=== PATIENT | male | born 1995 | race Caucasian/White ===

== ENCOUNTER 2016-08-25 16:49 | Emergency (ER) | payer OTHER ==
[2016-08-25 17:25] VITALS: BP 153/71; PULSE 89; RESP 18; TEMP 98.7
--- NOTE | 2016-08-25 17:43 | ED ---
ENT HPI - General Chief complaint: Dental/Oral Stated complaint: Abscess Tooth Source: patient, RN notes reviewed, old records reviewed Mode of arrival: ambulatory Limitations: no limitations - History of Present Illness Initial comments: Patient is a 21 year old male with chief complaint of right upper molar pain and swelling and concerns for possible dentla abscess. Patient reports that he has had problems with his teeth, and is seeing a dentist in [place] next week. Patient states that he noticed the dental pain and swelling a few days ago, and the swelling has been progressvely worse. Patient denies fevers, chills, chest pain, difficulty swallowing, shortness of breath. Patient denies difficulty opening and closing mouth, and drainage around the ike. - Related Data Previous Rx's Medication Instructions Recorded Acetaminophen-Codeine 300-30mg 1 tab PO Q8H PRN #20 tablet 08/25/16 [Tylenol #3] Clindamycin [Cleocin] 450 mg PO TID 7 Days 08/25/16 Allergies Allergy/AdvReac Type Severity Reaction Status Date / Time Penicillins Allergy Anaphylaxis Verified 08/25/16 17:44 Review of Systems ROS Statement: Those systems with pertinent positive or pertinent negative responses have been documented in the HPI. ROS Other: All systems not noted in ROS Statement are negative. Past Medical History Past Medical History: Asthma History of Any Multi-Drug Resistant Organisms: None Reported Past Surgical History: No Surgical Hx Reported Additional Past Surgical History / Comment(s): testicular surgery, oral surgery Past Psychological History: Bipolar Smoking Status: Current every day smoker Past Alcohol Use History: Rare Past Drug Use History: None Reported General Exam - General Exam Comments Initial Comments: Pleasant 21 year old male. No distress. Limitations: no limitations General appearance: alert, in no apparent distress Head exam: Present: atraumatic, normocephalic, normal inspection Eye exam: Present: normal appearance, PERRL, EOMI. Absent: scleral icterus, conjunctival injection, periorbital swelling ENT exam: Present: normal exam, mucous membranes moist. Absent: normal oropharynx (broken upper left molar, evidence of erythema around gum, and swelling around gum ) Neck exam: Present: normal inspection. Absent: tenderness, meningismus, lymphadenopathy Respiratory exam: Present: normal lung sounds bilaterally. Absent: respiratory distress, wheezes, rales, rhonchi, stridor Cardiovascular Exam: Present: regular rate, normal rhythm, normal heart sounds. Absent: systolic murmur, diastolic murmur, rubs, gallop, clicks GI/Abdominal exam: Present: soft, normal bowel sounds. Absent: distended, tenderness, guarding, rebound, rigid Extremities exam: Present: normal inspection, full ROM, normal capillary refill. Absent: tenderness, pedal edema, joint swelling, calf tenderness Back exam: Present: normal inspection Neurological exam: Present: alert, oriented X3, CN II-XII intact Psychiatric exam: Present: normal affect, normal mood Skin exam: Present: warm, dry, intact, normal color. Absent: rash Course Vital Signs 08/25/16 17:22 Temperature 98.7 F Pulse Rate 89 Respiratory 18 Rate Blood Pressure 153/71 O2 Sat by Pulse 98 Oximetry Medical Decision Making - Medical Decision Making Patient is a 21 year old male with abscessed left upper molar, patient will be started on clindamycin and pain medication. Discussed close follow up with dentist. Patient understands treatment planand will comply. Return parameters discussed. Disposition Clinical Impression: Dental abscess Disposition: HOME SELF-CARE Condition: Good Instructions: Dental Abscess (ED) Additional Instructions: Patient advised to complete entire antibiotic prescription. Follow-up with dentist next week. Return to emergency Department if any alarming signs or symptoms occur. Prescriptions: Acetaminophen-Codeine 300-30mg [Tylenol #3] 1 tab PO Q8H PRN #20 tablet PRN Reason: Pain Clindamycin [Cleocin] 450 mg PO TID 7 Days Referrals: None,Stated [Primary Care Provider] - 1-2 days Time of Disposition: 17:41
== END 2016-08-25 17:48 | disposition home or self-care (01) ==
LOC: EC 16:49
DX: S02.5XXA Fracture of tooth (traumatic), initial encounter for closed fracture (principal); K04.7 Periapical abscess without sinus; F17.200 Nicotine dependence, unspecified, uncomplicated; Z88.0 Allergy status to penicillin; Z98.890 Other specified postprocedural states; X58.XXXA Exposure to other specified factors, initial encounter
CPT/HCPCS: 99283

== ENCOUNTER 2016-10-11 10:22 | Inpatient (IN) | payer MEDICAID, OTHER ==
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
[2016-10-11 11:29] LABS: Acetaminophen <10.0 ug/mL; Salicylate <1.0 mg/dL
[2016-10-11 15:04] VITALS: BMI 21.0
[2016-10-11] MEDS ORDERED: MAG HYDROX/AL HYDROX/SIMETH 30 ML CUP PO PRN (16:10)
[2016-10-11] MEDS ORDERED: ACETAMINOPHEN TAB 325 MG TAB PO PRN (16:10)
[2016-10-11] MEDS ORDERED: MAGNESIUM HYDROXIDE 2,400 MG/10 ML CUP PO PRN (16:10)
[2016-10-11] MEDS ORDERED: ZIPRASIDONE 20 MG VIAL IM PRN (16:10)
[2016-10-11] MEDS ORDERED: DIAZEPAM 5 MG TAB PO PRN (16:24)
[2016-10-11] MEDS: NICOTINE 21MG/24HR PATCH TRANSDERM SCH (17:20)
[2016-10-11] MEDS: DIAZEPAM 5 MG TAB PO SCH ×2 (17:56→21:11)
[2016-10-12 09:28] LABS: Basophils % (A) 0 %; CH 32.7; CHCM 33.4; Eosinophils # (A) 0.2 k/uL (0-0.7); Eosinophils % (A) 3 %; HCT 52.6 % (39.0-53.0); HDW 2.46; HGB 17.1 gm/dL (13.0-17.5); Luc # (Auto) 0.15; Luc % (Auto) 3; Lymphocytes # (A) 1.8 k/uL (1.0-4.8); Lymphocytes % (A) 32 %; MCHC 32.5 g/dL (31.0-37.0); MCV 98.4 fL (80.0-100.0); Mean Platelet Volume 6.9; Monocytes # (A) 0.3 k/uL (0-1.0); Monocytes % (A) 6 %; Neutrophils # (A) 3.2 k/uL (1.3-7.7); Neutrophils % (A) 57 %; RBC 5.34 m/uL (4.30-5.90); RDW 12.5 % (11.5-15.5); WBC 5.6 k/uL (3.8-10.6); WBC (Perox) 5.59
[2016-10-12] MEDS: NICOTINE 21MG/24HR PATCH TRANSDERM SCH (09:35)
[2016-10-12] MEDS: DIAZEPAM 5 MG TAB PO SCH ×4 (09:35→20:54)
[2016-10-12 09:54] LABS: Anion Gap 10 mmol/L; Bilirubin, Delta 0.6 mg/dL (0.0-0.2); Calcium 9.7 mg/dL (8.4-10.2); Carbon Dioxide 24 mmol/L (22-30); Chloride 107 mmol/L (98-107); Glucose 119 mg/dL (74-99); Non-African American GFR(MDRD) >60 (>60 ml/min/1.73 sqM); Sodium 141 mmol/L (137-145); Total Bilirubin 1.6 mg/dL (0.2-1.3); Total Protein 7.5 g/dL (6.3-8.2)
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
[2016-10-12 10:27] LABS: ALT 29 U/L (21-72); AST 32 U/L (17-59); Alkaline Phosphatase 77 U/L (38-126); Blood Urea Nitrogen 18 mg/dL (9-20); Potassium 4.7 mmol/L (3.5-5.1)
[2016-10-12] MEDS: ARIPiprazole 5 MG TAB PO SCH (10:42)
[2016-10-12] MEDS ORDERED: cloNIDine HCL 0.1 MG TAB PO PRN (12:18)
--- NOTE | 2016-10-12 14:20 | P.CONS ---
History of Present Illness - Reason for Consult Consult date: 10/12/16 Medical management Requesting physician: Skyler Lua - Chief Complaint Severe depression, suicidal ideation, GERD, smoking, hyperglycemia, elevate - History of Present Illness 21-year-old male who does not have primary care physician was chronic history of depression and elevated blood pressure apparently has been having a lot of problems lately including financial, relation and living situation. Patient apparently smoke and drink also smoke marijuana regularly and uses crack once in a while. Patient developed severe depression and suicidal ideation walk to the emergency department and ask for help she cannot hurt himself. He lost his job recently and has been struggling be time. Patient was admitted to the psych unit for the above problem. Review of Systems Constitutional: Reports fatigue, Reports malaise, Denies as per HPI, Denies anorexia, Denies chills, Denies chronic headaches, Denies chronic pain, Denies daytime sleepiness, Denies fever, Denies lethargy, Denies night sweats, Denies poor appetite, Denies sweats, Denies weakness, Denies weight gain, Denies weight loss Eyes: bilateral as per HPI Ears, nose, mouth and throat: Reports nasal congestion, Denies as per HPI, Denies ant. neck pain, Denies bleeding gums, Denies dental pain, Denies dysphagia, Denies epistaxis, Denies headache, Denies hoarseness, Denies mouth pain, Denies nasal discharge, Denies neck fullness/pressure, Denies neck lump, Denies nose pain, Denies odynophagia, Denies post-nasal drip, Denies sinus pain , Denies sinus pressure, Denies swelling in mouth, Denies swelling in throat, Denies sore throat, Denies vertigo, Denies voice changes Cardiovascular: Denies as per HPI, Denies chest pain, Denies claudication, Denies decreased exercise tolerance, Denies dyspnea on exertion, Denies edema, Denies high blood pressure, Denies irregular heart beat, Denies leg edema, Denies lightheadedness, Denies orthopnea, Denies palpitations, Denies paroxysmal nocturnal dyspnea, Denies phlebitis, Denies rapid heart beat, Denies shortness of breath, Denies syncope Respiratory: Reports congestion, Denies as per HPI, Denies cough, Denies cough with sputum, Denies dyspnea, Denies excessive sputum, Denies hemoptysis, Denies home oxygen, Denies pain, Denies pain on inspiration, Denies pleurisy, Denies respiratory infections, Denies sleep apnea, Denies snoring, Denies wheezing Gastrointestinal: Reports abdominal pain, Reports dyspepsia, Reports indigestion , Reports nausea, Denies as per HPI, Denies belching, Denies bloating, Denies BRBPR, Denies change in bowel habits, Denies coffee ground emesis, Denies constipation, Denies diarrhea, Denies early satiety, Denies excessive gas, Denies heartburn, Denies hematemesis, Denies hematochezia, Denies jaundice, Denies lactose intolerance, Denies loss of appetite, Denies melena, Denies vomiting Genitourinary: Denies as per HPI, Denies decreased libido, Denies difficulties fathering child, Denies discharge, Denies dysuria, Denies erectile dysfunction, Denies flank pain, Denies genital pain, Denies genital sores, Denies hematuria, Denies impotence, Denies incontinence, Denies kidney stones, Denies nocturia, Denies polyuria, Denies testicular lump, Denies testicular pain, Denies urinary frequency, Denies urinary hesitancy, Denies urinary retention Musculoskeletal: Denies as per HPI, Denies arm numbness/tingling, Denies atrophy , Denies fractures, Denies frequent falls, Denies gait dysfunction, Denies hot joints, Denies leg numbness/tingling, Denies limitation of motion, Denies loss of height, Denies low back pain, Denies morning stiffness, Denies muscle cramps , Denies muscle weakness, Denies myalgias, Denies neck pain, Denies neck stiffness, Denies prior amputations, Denies redness of joints, Denies shooting arm pain, Denies shooting leg pain Integumentary: Reports pruritus, Reports rash, Denies as per HPI, Denies acne, Denies boils, Denies brittle nails, Denies change in hair/nails, Denies color changes, Denies darkening of skin, Denies depigmentation, Denies dryness, Denies foot/leg ulcers, Denies growths, Denies hirsutism, Denies lesions, Denies onychomycosis, Denies sores, Denies striae, Denies unusual bruising, Denies wounds Neurological: Denies as per HPI, Denies aphasia, Denies ataxia, Denies balance difficulties, Denies burning pain, Denies change in mentation, Denies change in smell/taste, Denies change in speech, Denies confusion, Denies convulsions, Denies double vision, Denies gait dysfunction, Denies head injury, Denies headaches, Denies hearing difficulties, Denies lack of coordination, Denies loss of vision, Denies memory loss, Denies migraines, Denies motor disturbance, Denies numbness, Denies paralysis, Denies paresthesias, Denies seizures, Denies sensory deficit, Denies spasticity, Denies syncope, Denies tic, Denies tingling , Denies transient paralysis, Denies tremors, Denies vertigo, Denies weakness, Denies visual changes Psychiatric: Reports anhedonia, Reports anxiety, Reports depression, Reports mood swings, Reports paranoia, Reports sadness/tearfulness, Reports suicidal ideation, Denies as per HPI, Denies anxiety attacks, Denies change in appetite, Denies change in libido, Denies change in sleep habits, Denies confusion, Denies difficulty concentrating, Denies disorientation, Denies hallucinations, Denies hopelessness, Denies hypersomnia, Denies insomnia, Denies irritability, Denies memory loss, Denies sleep disturbances Endocrine: Reports excessive sweating, Reports excessive thirst, Denies as per HPI, Denies cold intolerance, Denies deepening of the voice, Denies fatigue, Denies flushing, Denies heat intolerance, Denies high blood sugars, Denies increase in ring/shoe/hat size, Denies low blood sugars, Denies nocturia, Denies palpitations, Denies polydipsia, Denies polyphagia, Denies polyuria, Denies proptosis, Denies recent glucocorticoid use, Denies thyroid mass, Denies weight change Hematologic/Lymphatic: Reports easy bruising, Denies as per HPI, Denies easy bleeding, Denies lymphadenopathy, Denies lymphedema, Denies thrombophilia Allergic/Immunologic: Reports allergic rhinitis, Denies as per HPI, Denies anaphylaxis, Denies angioedema, Denies gluten intolerance, Denies persistent infections, Denies seasonal allergies, Denies urticaria, Denies wheezing Past Medical History Past Medical History: Asthma History of Any Multi-Drug Resistant Organisms: None Reported Past Surgical History: No Surgical Hx Reported Additional Past Surgical History / Comment(s): testicular surgery, oral surgery Past Psychological History: Bipolar Smoking Status: Current every day smoker Past Alcohol Use History: Daily Past Drug Use History: Cocaine, Heroin, Marijuana Medications and Allergies Home Medications Medication Instructions Recorded Confirmed Type Ibuprofen [Motrin] 800 mg PO TID PRN 10/11/16 10/11/16 History Allergies Allergy/AdvReac Type Severity Reaction Status Date / Time Penicillins Allergy Anaphylaxis Verified 10/11/16 15:31 Physical Exam Vitals: Vital Signs Temp Pulse Pulse Resp BP BP Pulse Ox 10/12/16 13:03 90 16 141/83 10/12/16 09:35 84 16 167/87 10/12/16 06:18 97.7 F 68 18 143/78 10/11/16 21:15 72 16 136/71 10/11/16 17:50 75 16 145/74 10/11/16 15:27 98.0 F 93 16 138/69 10/11/16 14:53 98.0 F 93 16 138/69 10/11/16 14:28 98.4 F 74 16 146/69 98 - Constitutional General appearance: no average body habitus, cooperative, no disheveled, no mild distress, no morbidly obese, no acute distress, no obese, no severe distress, no thin - EENT Eyes: no abnormal pupil, no anicteric sclerae, no disc margins sharp, no edentulous, no EOMI, no PERRLA, no fundus normal, no photophobia, no dentition normal, no poor dentition, no ptosis, no scleral icterus, normal appearance ENT: no hard of hearing, no hearing grossly normal, no NA/AT, no normal oropharynx, no other, pharyngeal erythema, no thrush, no tonsillar exudates, no tonsillar swelling Ears: bilateral: normal - Neck Neck: no lymphadenopathy, normal ROM, no other, no rigidity, no stridor, no thyromegaly Carotids: bilateral: upstroke normal Thyroid: bilateral: normal size - Respiratory Respiratory: bilateral: CTA - Cardiovascular Rhythm: regular Heart sounds: normal: S1, S2 - Gastrointestinal General gastrointestinal: no absent bowel sounds, no decreased bowel sounds, no distended, no hepatomegaly, no hyperactive bowel sounds, normal bowel sounds, no organomegaly, no rigid, no scaphoid, soft, no splenomegaly, no tenderness, no umbilical hernia, no ventral hernia - Integumentary Integumentary: no calor, no cellulitis, no cyanotic, no decreased turgor, no flushed, no jaundiced, normal, no normal turgor, no pale, rash, no ulcer - Neurologic Neurologic: CNII-XII intact - Musculoskeletal Musculoskeletal: gait normal, generalized weakness, strength equal bilaterally, no right sided weakness, no left sided weakness - Psychiatric Psychiatric: A&O x's 3, appropriate affect Results CBC & Chem 7: 10/12/16 08:50 10/12/16 08:50 Labs: Abnormal Lab Results - Last 24 Hours (Table) 10/12/16 Range/Units 08:50 Glucose 119 H (74-99) mg/dL Total Bilirubin 1.6 H (0.2-1.3) mg/dL Delta Bilirubin 0.6 H (0.0-0.2) mg/dL Assessment and Plan Plan: 1 severe depression and suicidal ideation: Patient was started on Valium Geodon and Abijannethy will be seen psychiatry on regular basis. 2 hypertension: Blood pressure remain slightly but elevated start patient on clonidine 0.1 mg every 8 hours for systolic above 160. 3 smoking: Patient be on nicotine patch 14-21 mg daily. 4 alcoholism: He is not intoxicated currently but we should worry about withdrawal from alcohol and DVT: Patient was started on Valium will be seen psych regularly. 5 mildly elevated bilirubin: Most likely from [place] consumption. 6 hyperglycemia: On diet control only. CODE STATUS: Full code. Dr. Lua thank you very much for the consult if I can be any further help to please let me know thank you.
[2016-10-13] MEDS: DIAZEPAM 5 MG TAB PO SCH ×4 (09:33→22:13)
[2016-10-13] MEDS: FAMOTIDINE 20 MG TAB PO SCH (09:33)
[2016-10-13] MEDS: ARIPiprazole 5 MG TAB PO SCH (09:33)
[2016-10-13] MEDS: NICOTINE 21MG/24HR PATCH TRANSDERM SCH (09:33)
--- NOTE | 2016-10-13 12:51 | P.PN ---
Progress Note - Text INTERVERAL HISTORY: Patient seen, records reviewed, discussed case with nursing staff. Patient admitted for suicidal ideation, long history of depression since childhood. Had plans of overdosing or cutting/stabbing himself. Patient states his 5-month-old son was the reason he came in seeking care. Patient states that he knows he's had problems for a long time anger has been long-standing constant for him. Depression fluctuating alternating with anger. Reports while in group today he was starting to become angry with some of the other patients who he felt were not taking the group topic seriously. He says he just became quiet and would not interact. Patient says his mother tries but is unable to be supportive, says that his sister is the biggest support he has and he plans to live with her on discharge. Patient has been using heroin alcohol and cannabis, states he wants to stop everything, and is hoping he can get into [place]. Denies suicidal ideation but states he thinks if he doesn't get treatment and will happen. He focuses on his 5-month-old child and desire to be there as a father. MENTAL STATUS EXAM:Patient alert and oriented 3, good eye contact, fair groomed in hospital attire/street clothing. Speech normal volume, rate and production. Coherent, logical and goal directed thought process. No EARL, no FOI. [No TB/TW/ TI] Denied auditory and visual hallucinations. Denied paranoid ideation, delusions or IOR. Memory grossly intact Cognition average Mood dysphoric, affect constricted, congruent with mood. Denies suicidal ideation, denies homicidal ideation. Insight partial; Judgement grossly intact for treatment purposes Diagnostic impression: This is a 21-year-old male reported history of depression since childhood. Continues with dysphoria, but also with anger suggesting mood disorder, unspecified rule out bipolar 2. Although denying suicidal ideation and reporting his 5-month-old child as being present in his mind all the time, risk of suicide is high. Unspecified mood disorder Rule out bipolar 2 Rule out Opioid use disorder Rule out Cocaine use disorder Cannabis use disorder, moderate Rule out alcohol use disorder PLAN: Continue inpatient psychiatric hospitalization for safety and management of mood disorder, and avoidance of alcohol withdrawal,CIWA. Suicide precautions. Will increase Abilify to 7.5 mg daily (2.5 mg dose now) Deferred starting antidepressant until clarification of disorder, antidepressant use is not helpful in bipolar disorder. Social work to help with rehabilitation plans. Social work to arrange family meeting with sister. Milieu therapy as tolerated, if getting angry patient and be encouraged to leave the group
[2016-10-13] MEDS ORDERED: ARIPiprazole 5 MG TAB PO ONE (13:00)
[2016-10-14 06:24] VITALS: TEMP 97.5
[2016-10-14] MEDS: FAMOTIDINE 20 MG TAB PO SCH (08:51)
[2016-10-14] MEDS: NICOTINE 21MG/24HR PATCH TRANSDERM SCH (08:51)
[2016-10-14] MEDS: DIAZEPAM 5 MG TAB PO SCH ×2 (08:51→21:42)
[2016-10-14] MEDS ORDERED: ARIPiprazole 5 MG TAB PO SCH (09:00)
--- NOTE | 2016-10-14 09:30 | P.PN ---
Progress Note - Text Interval history: The patient is found in group he follows me to an interview room. The patient was admitted over the weekend the psychiatric evaluation and progress note were reviewed. He reports presenting with suicidal ideation and feeling overwhelmed. He feels he is now in a safe place. He is hoping to get into [facility] for chemical dependency treatment. He does endorse hypomanic episodes as be described those symptoms. He struggles with mood swings irritability impulse control. He was started on Abilify and this was titrated further yesterday. We discussed the purpose of Abilify and he has no questions or concerns regarding that medication. He states he slept well last night he reports attending all groups. Mental status exam: The patient is a male appearing his stated age he seated calmly. He is casually dressed in sweatpants a longsleeved T-shirt with a T-shirt over top. He wears eyeglasses. Eye contact is appropriate speech is fluent spontaneous nonpressured. He has a constricted affect with limited range. He demonstrates no verbal or physical aggressiveness. His fingernails are all quite short from being chewed he states due to anxiety. He feels safe here in the hospital and is endorsing no acute suicidal ideation today he is endorsing no homicidal ideation. He endorses no auditory or visual hallucinations or specific delusions there is no evidence of psychosis. Insight and judgment appear to be improving. He demonstrates future oriented thinking. He is oriented to person place and date. Plan: The patient will continue on the Abilify as a mood stabilizer we will increase the dose to 10 mg daily. He is reporting no side effects from this medication. Vital signs reviewed. He was placed on Valium 5 mg 4 times daily scheduled we will reduce this to twice daily scheduled with backup Ativan as needed. He will continue participating in groups. I will confer with social work regarding his placement at [facility] and arranging a support meeting.
[2016-10-15 06:18] VITALS: BP 125/66; PULSE 54; RESP 16
[2016-10-15] MEDS: FAMOTIDINE 20 MG TAB PO SCH (08:18)
[2016-10-15] MEDS: NICOTINE 21MG/24HR PATCH TRANSDERM SCH (08:18)
[2016-10-15] MEDS: DIAZEPAM 5 MG TAB PO SCH (08:18)
[2016-10-15] MEDS ORDERED: ARIPiprazole 10 MG TAB PO SCH (09:00)
--- NOTE | 2016-10-15 09:46 | P.DS ---
Providers Date of admission: 10/11/16 14:17 Expected date of discharge: 10/15/16 Attending physician: Skyler Lua Consults: 10/11/16 16:10 Consult Physician Routine Consulting Provider: Tushar Mckenna Reason/Comments: H & P and medical follow up Do you want consulting provider notified?: Yes Primary care physician: Stated None - Discharge Diagnosis(es) (1) Bipolar II disorder Current Visit: Yes Status: Acute (2) Opiate dependence Current Visit: Yes Status: Acute (3) Alcohol use disorder Current Visit: Yes Status: Acute Hospital Course: Brief summary of admission note: This patient is a 21-year-old male who was admitted to the mental health unit for symptoms of depression including suicidal ideation. The patient reported a history of mood symptoms including mood swings irritability and bouts of agitation and aggression. For full details please refer to the psychiatric evaluation. Summary of hospital course: The patient was admitted to the mental health unit voluntarily. He was initially seen by the [facility] physician covering for the weekend. He was started on Abilify for mood stabilization. I assumed care of this patient starting yesterday. We clarified that he has had hypomanic episodes and discussed that Abilify can be used for mood stabilization with a bipolar 2 disorder. We decided to titrate the dose to 10 mg daily allowing it to be more effective for that purpose. The patient does have a history of opiate use disorder and alcohol use disorder. He has made contact with [facility] and will be starting treatment with them on October 27. He did undergo a family meeting involving his sister and that was productive. He will be returning to his sister's home and he will have a constant support from family there. He feels that he is able to maintain sobriety until starting rehab on the . He will be set up for individual counseling. His questions regarding Abilify were answered we discussed potential benefits and side effects of the medication. He is reporting a significant improvement of his mood and he feels more optimistic and he demonstrates future oriented thinking. The patient demonstrated no agitated behavior. He has been productively participating in the milieu. Mental status exam: The patient is a thin male appearing his stated age. He wears eyeglasses he has a missing front tooth. He does have visible tattoos he is dressed in his own clothing hygiene grooming are adequate. He reports his mood is "much better" affect is congruent and appropriately reactive. He reports no suicidal or homicidal ideation intent or plan. He demonstrates future oriented thinking and optimism. He demonstrates no symptoms of psychosis, he reports no auditory or visual hallucinations he reports no specific delusions. Thought process is linear and goal-directed he demonstrates no symptoms of hypomania or tony. Insight and judgment are grossly intact. Cognitive abilities remain stable across a hospitalization he is oriented to person place and date. He demonstrates no verbal or physical aggressiveness no other psychomotor agitation. Impressions 1. Bipolar 2 disorder most recent depressed, opiate use disorder, alcohol use disorder, cannabis use disorder 2. Financial constraints Plan: The patient will be discharged the mental health unit today he will return to his family's home temporarily to reside prior to rehab. He will continue on Abilify 10 mg daily. Social work has arrange the outpatient mental health follow-up. The patient will continue to address substance use issues during outpatient mental health follow-up as well. He is reporting no immediate access to firearms at his sister's home. He is verbalizing an understanding that he needs to abstain from alcohol and marijuana and any illicit drug use. We discussed that his safety risk is elevated with use of substances. He is no longer at imminent safety risk he is appropriate for discharge to outpatient care. Patient Condition at Discharge: Stable Plan - Discharge Summary New Discharge Prescriptions: New ARIPiprazole [Abilify] 10 mg PO DAILY #30 tab Nicotine 21Mg/24Hr Patch [Habitrol] 1 patch TRANSDERM DAILY #12 patch Discontinued Ibuprofen [Motrin] 800 mg PO TID PRN PRN Reason: Pain Discharge Medication List ARIPiprazole [Abilify] 10 mg PO DAILY #30 tab 10/15/16 [Rx] Nicotine 21Mg/24Hr Patch [Habitrol] 1 patch TRANSDERM DAILY #12 patch 10/15/16 [ Rx] Follow up Appointment(s)/Referral(s): intake,intake [Other] - 10/27/16 11:00 am None,Stated [Primary Care Provider] - 1-2 days
== END 2016-10-15 12:45 | disposition home or self-care (01) | DRG 885 ==
LOC: EC 10:22 → 3MHU 14:17
PROVIDERS: ADMIT Psychiatry & Neurology Psychiatry; ATTEND Psychiatry & Neurology Psychiatry
DX: F31.81 Bipolar II disorder (principal); F11.20 Opioid dependence, uncomplicated; R45.851 Suicidal ideations; F17.200 Nicotine dependence, unspecified, uncomplicated; F41.9 Anxiety disorder, unspecified; J45.909 Unspecified asthma, uncomplicated; K21.9 Gastro-esophageal reflux disease without esophagitis; Z59.0 Homelessness; Z91.410 Personal history of adult physical and sexual abuse; Z91.411 Personal history of adult psychological abuse; F11.10 Opioid abuse, uncomplicated; F10.10 Alcohol abuse, uncomplicated
CPT/HCPCS: 36415; 80053; 80306; 82075; 82248; 83520; 84443; 85025; 99285

== ENCOUNTER 2017-05-05 06:51 | Emergency (ER) | payer OTHER ==
[2017-05-05 06:58] VITALS: RESP 18
[2017-05-05] MEDS ORDERED: KETOROLAC 30 MG/ML 1 ML VIAL IVP STA (07:29)
[2017-05-05] MEDS ORDERED: KETOROLAC 30 MG/ML 1 ML VIAL IM STA (07:30)
--- NOTE | 2017-05-05 07:33 | ED ---
General Adult HPI - General Chief complaint: Dental/Oral Stated complaint: dental pain Time Seen by Provider: 05/05/17 07:00 Source: patient, RN notes reviewed Mode of arrival: ambulatory Limitations: no limitations - History of Present Illness Initial comments: 21-year-old male presenting for evaluation of left lower tooth pain. Pain is been present for one day. Denies any dental trauma. Patient does have poor dentition. Previous history of IV drug abuse. Not currently using drugs. Patient has not had dental follow-up in the recent history. Denies fever or chills. Denies shortness of breath difficult to breathing, denies difficulty swallowing. Patient does have associated left ear pain. - Related Data Previous Rx's Medication Instructions Recorded Clindamycin [Cleocin] 150 mg PO Q6H #40 capsule 05/05/17 Ibuprofen [Motrin] 600 mg PO Q8HR PRN #24 tab 05/05/17 Allergies Allergy/AdvReac Type Severity Reaction Status Date / Time Penicillins Allergy Anaphylaxis Verified 05/05/17 07:27 Review of Systems ROS Statement: Those systems with pertinent positive or pertinent negative responses have been documented in the HPI. ROS Other: All systems not noted in ROS Statement are negative. Past Medical History Past Medical History: Asthma History of Any Multi-Drug Resistant Organisms: None Reported Past Surgical History: No Surgical Hx Reported Additional Past Surgical History / Comment(s): testicular surgery, oral surgery Past Psychological History: Bipolar Smoking Status: Current every day smoker Past Alcohol Use History: Occasional Past Drug Use History: Cocaine, Heroin, Marijuana General Exam Limitations: no limitations General appearance: alert, in no apparent distress Head exam: Present: atraumatic, normocephalic Eye exam: Present: normal appearance, PERRL ENT exam: Present: TM's normal bilaterally, other (Left lower molars, with dental caries, tenderness to percussion, no gingival abscess appreciated. No soft tissue swelling.) Neck exam: Present: normal inspection. Absent: tenderness, meningismus Respiratory exam: Present: normal lung sounds bilaterally. Absent: respiratory distress Cardiovascular Exam: Present: regular rate, normal rhythm GI/Abdominal exam: Present: soft. Absent: distended, tenderness Extremities exam: Present: normal inspection, normal capillary refill. Absent: pedal edema Neurological exam: Present: alert, oriented X3, CN II-XII intact. Absent: motor sensory deficit Psychiatric exam: Present: normal affect, normal mood Skin exam: Present: warm, dry, intact Course Vital Signs 05/05/17 06:55 Temperature 97.0 F L Pulse Rate 65 Respiratory 18 Rate Blood Pressure 177/110 O2 Sat by Pulse 99 Oximetry Medical Decision Making - Medical Decision Making 21-year-old male presenting with left lower molar pain. Significant dental caries, tenderness to percussion. No surrounding soft tissue cellulitis or infection. Patient is given tramadol emergency department. He is given dental referral and prescription for clindamycin as he has a penicillin ALLERGY. He will return with worsening symptoms. Disposition Clinical Impression: Dental abscess, Dental caries, Toothache Disposition: HOME SELF-CARE Condition: Good Instructions: Dental Abscess (ED), Dental Caries (ED), Toothache (ED) Additional Instructions: Patient given outpatient dental referral. Prescriptions: Clindamycin [Cleocin] 150 mg PO Q6H #40 capsule Ibuprofen [Motrin] 600 mg PO Q8HR PRN #24 tab PRN Reason: Pain Referrals: Nonstaff,Physician [Primary Care Provider] - 1-2 days Time of Disposition: 07:33
[2017-05-05 08:28] VITALS: BP 126/78; PULSE 70; TEMP 98
== END 2017-05-05 08:28 | disposition home or self-care (01) ==
LOC: EC 06:51
DX: K02.9 Dental caries, unspecified (principal); K04.7 Periapical abscess without sinus; H92.02 Otalgia, left ear; F17.200 Nicotine dependence, unspecified, uncomplicated; Z88.0 Allergy status to penicillin
CPT/HCPCS: 99282; 96372; J1885

== ENCOUNTER 2018-11-29 13:53 | Emergency (ER) | payer OTHER ==
[2018-11-29 13:58] VITALS: BP 173/97; PULSE 70; RESP 18; TEMP 97.8
--- NOTE | 2018-11-29 14:19 | ED ---
ENT HPI - General Chief complaint: Dental/Oral Stated complaint: Oral Pain Time Seen by Provider: 11/29/18 13:58 Source: patient, RN notes reviewed Mode of arrival: ambulatory Limitations: no limitations - History of Present Illness Initial comments: 23-year-old male presents emergency Department chief complaint of left lower dental pain. Patient states she has [facility] states isn't increased pain last 24 hours no fevers or chills. Patient states that he just moved back from [place] he denies been any medications other night. At this time. Patient is requesting dental block. Patient denies any trismus no headache no dizziness no neck pain or neck stiffness. - Related Data Previous Rx's Medication Instructions Recorded Clindamycin [Cleocin] 150 mg PO Q6H #40 capsule 05/05/17 Ibuprofen [Motrin] 600 mg PO Q8HR PRN #24 tab 05/05/17 Cephalexin [Keflex] 500 mg PO Q6HR #40 cap 11/29/18 Allergies Allergy/AdvReac Type Severity Reaction Status Date / Time Penicillins Allergy Anaphylaxis Verified 11/29/18 13:56 Review of Systems ROS Statement: Those systems with pertinent positive or pertinent negative responses have been documented in the HPI. ROS Other: All systems not noted in ROS Statement are negative. Past Medical History Past Medical History: Asthma History of Any Multi-Drug Resistant Organisms: None Reported Past Surgical History: No Surgical Hx Reported Additional Past Surgical History / Comment(s): testicular surgery, oral surgery Past Psychological History: Bipolar Smoking Status: Current every day smoker Past Alcohol Use History: Occasional Past Drug Use History: None Reported, Cocaine, Heroin, Marijuana General Exam Limitations: no limitations General appearance: alert, in no apparent distress Head exam: Present: atraumatic, normocephalic, normal inspection Eye exam: Present: normal appearance, PERRL, EOMI. Absent: scleral icterus, conjunctival injection, periorbital swelling ENT exam: Present: mucous membranes moist, TM's normal bilaterally, normal external ear exam. Absent: normal oropharynx (Down fracture left forearm right lower, no abscess noted mild erythema gumline, no mandibular tenderness no trismus) Neck exam: Present: normal inspection, full ROM. Absent: tenderness, meningismus, lymphadenopathy Respiratory exam: Present: normal lung sounds bilaterally. Absent: respiratory distress, wheezes, rales, rhonchi, stridor Cardiovascular Exam: Present: regular rate, normal rhythm, normal heart sounds. Absent: systolic murmur, diastolic murmur, rubs, gallop, clicks Course Vital Signs 11/29/18 13:56 Temperature 97.8 F Pulse Rate 70 Respiratory 18 Rate Blood Pressure 173/97 O2 Sat by Pulse 99 Oximetry Procedures - Nerve Block Local Anesthetic Used: MARCAINE 0.5% with EPI Amount of anesthesia used: 2 Side: left Intraoral Nerve Block: inferior alveolar Procedure Successful: Yes Complications: none Patient Tolerated Procedure: well, no complications Medical Decision Making - Medical Decision Making 23-year-old male presented for lower jawline, dental pain. Patient was given inferior alveolar block. This was successful. Patient we discharged with Keflex is requesting free antibiotics secondary to having no insurance. Patient does have an ALLERGY to penicillin family states he was rash on his younger. Patient denies any prior reaction to Keflex. Patient will follow-up with the dentist or dental clinic Disposition Clinical Impression: Fracture of tooth, Toothache Disposition: HOME SELF-CARE Condition: Stable Instructions (If sedation given, give patient instructions): Toothache (ED) Additional Instructions: Please return to the Emergency Department if symptoms worsen or any other concerns.Please follow up with the [facility] dental [facility]. [facility] [place] [address]. Phone number for new patients or [phone] for existing patients. Prescriptions: Cephalexin [Keflex] 500 mg PO Q6HR #40 cap Is patient prescribed a controlled substance at d/c from ED?: No Referrals: None,Stated [Primary Care Provider] - 1-2 days Time of Disposition: 14:19
[2018-11-29] MEDS ORDERED: BUPIVACAINE (PF) 0.25% 30 ML VIAL SQ STA (14:29)
== END 2018-11-29 14:59 | disposition home or self-care (01) ==
LOC: EC 13:53
DX: S02.5XXA Fracture of tooth (traumatic), initial encounter for closed fracture (principal); F17.200 Nicotine dependence, unspecified, uncomplicated; Z88.0 Allergy status to penicillin
CPT/HCPCS: 64400; 99282

== ENCOUNTER 2018-12-01 00:54 | Emergency (ER) | payer OTHER ==
[2018-12-01 01:03] VITALS: BP 148/89; PULSE 60; TEMP 97.3
[2018-12-01] MEDS ORDERED: ACETAMINOPHEN TAB 325 MG TAB PO STA (01:23)
[2018-12-01] MEDS ORDERED: IBUPROFEN 600 MG STARTER PACK 4 TAB BTL PO STA (01:23)
[2018-12-01] MEDS ORDERED: IBUPROFEN 600 MG TAB PO STA (01:23)
--- NOTE | 2018-12-01 01:30 | ED ---
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 Patient does have a left lower broken molar. Patient denies any other complaints this time. Denies any nausea vomiting diarrhea, fevers chills, chest pain shortness of breath. Systemic: Pt denies fatigue, fever/chills, rash. Pt denies weakness, night sweats, weight loss. Neuro: Pt denies headache, visual disturbances, syncope or pre-syncope. HEENT: Pt denies ocular discharge or irritation, otalgia, rhinorrhea, pharyngitis or notable lymphadenopathy. Cardiopulmonary: Pt denies chest pain, SOB, heart palpitations, dyspnea on exertion. Abdominal/GI: Pt denies abdominal pain, n/v/d. : Pt denies dysuria, burning w/ urination, frequency/urgency. Denies new onset urinary or bowel incontinence. MSK: Pt denies myalgia, loss of strength or function in extremities. Neuro: Pt denies new onset weakness, paresthesias. - Related Data Previous Rx's Medication Instructions Recorded Cephalexin [Keflex] 500 mg PO Q6HR #40 cap 11/29/18 Allergies Allergy/AdvReac Type Severity Reaction Status Date / Time Penicillins Allergy Anaphylaxis Verified 11/29/18 13:56 Review of Systems ROS Statement: Those systems with pertinent positive or pertinent negative responses have been documented in the HPI. ROS Other: All systems not noted in ROS Statement are negative. Past Medical History Past Medical History: Asthma History of Any Multi-Drug Resistant Organisms: None Reported Past Surgical History: No Surgical Hx Reported Additional Past Surgical History / Comment(s): testicular surgery, oral surgery Past Psychological History: Anxiety, Bipolar Smoking Status: Current every day smoker Past Alcohol Use History: Occasional Past Drug Use History: Cocaine, Heroin, Marijuana General Exam - General Exam Comments Initial Comments: Constitutional: NAD, AOX3, Pt has pleasant affect. HEENT: NC/AT, trachea midline, neck supple, no lymphadenopathy. Posterior pharynx non erythematous, without exudates. External ears appear normal, without discharge. Mucous membranes moist. Eyes PERRLA, EOM intact. There is no scleral icterus. No pallor noted. Poor dentition noted. Left lower molar broken. No erythema, general abscess or discharge. Cardiopulmonary: RRR, no murmurs, rubs or gallops, no JVD noted. Lungs CTAB in anterior and posterior lino. No peripheral edema. Abdominal exam: Abdomen soft and non-distended. Abdomen non-tender to palpation in all 4 quadrants. Bowel sounds active in LLQ. No hepatosplenomegaly. No ecchymosis Neuro: CN II-XII grossly intact. No nuchal rigidity. No raccon eyes, no lund sign, no hemotympanum. No cervical spinal tenderness. MSK: No posterior calf tenderness bilaterally, homans sign negative bilaterally. Posterior tibialis and radial pulse +2 bilaterally. Sensation intact in upper and lower extremities. Full active ROM in upper and lower extremities, 5/5 stregnth. Limitations: no limitations Course Vital Signs 12/01/18 01:00 Temperature 97.3 F L Pulse Rate 60 Respiratory 19 Rate Blood Pressure 148/89 O2 Sat by Pulse 100 Oximetry Medical Decision Making - Medical Decision Making 23-year-old male patient comes to ED for dental pain. Patient was then stable, afebrile. Physical exam displayed a broken tooth. Patient was recently seen for this 2 days ago, was placed on antibiotics. No signs of infection noted at this time. Patient administered Tylenol Motrin in ED. Patient will be discharged, will follow up with dentist as soon as possible. Case discussed with Dr. Adams. Disposition Clinical Impression: Pain, dental Disposition: HOME SELF-CARE Condition: Stable Instructions (If sedation given, give patient instructions): Toothache (ED) Additional Instructions: Patient to adhere to previously discussed treatment plan and will take medication(s) as directed. Patient to follow up with PCP in 1-2 days. Patient to return to ED if symptoms do not improve. Return to ER if condition worsens. Follow-up with dentist. Is patient prescribed a controlled substance at d/c from ED?: No Referrals: None,Stated [Primary Care Provider] - 1-2 days Jelena Jacques DDS [STAFF PHYSICIAN] - 1-2 days Johnny Agarwal DDS [STAFF PHYSICIAN] - 1-2 days Lilo Villafana DDS [STAFF PHYSICIAN] - 1-2 days
[2018-12-01 02:10] VITALS: RESP 18
== END 2018-12-01 01:47 | disposition home or self-care (01) ==
LOC: EC 00:54
DX: S02.5XXA Fracture of tooth (traumatic), initial encounter for closed fracture (principal); F17.200 Nicotine dependence, unspecified, uncomplicated; Z88.0 Allergy status to penicillin
CPT/HCPCS: 99283

== ENCOUNTER 2024-10-25 16:09 | Emergency (ER) | payer OTHER ==
[2024-10-25 16:24] VITALS: RESP 16; TEMP 97.9
--- NOTE | 2024-10-25 16:47 | ED ---
Eye Problem HPI - General Chief complaint: Eye Problems Stated complaint: L eye issue Time Seen by Provider: 10/25/24 16:46 Source: patient, RN notes reviewed Mode of arrival: ambulatory Limitations: no limitations - History of Present Illness Initial comments: 29-year-old male presented the ER for evaluation of left eye irritation. Patient states he was at work this afternoon cutting a bolt when he felt a hot cold going to his left eye. He states he immediately attempted to flush out his eye. He is endorsing an irritation to his left eye. He denies any double blurry vision. Patient typically wears glasses occasionally wears contacts. Tetanus status unknown. Patient denies any other complaints at this time. - Related Data Previous Rx's Medication Instructions Recorded Cephalexin [Keflex] 500 mg PO Q6HR #40 cap 11/29/18 Allergies Allergy/AdvReac Type Severity Reaction Status Date / Time Penicillins Allergy Anaphylaxis Verified 10/25/24 16:24 Review of Systems ROS Statement: Those systems with pertinent positive or pertinent negative responses have been documented in the HPI. ROS Other: All systems not noted in ROS Statement are negative. Past Medical History Past Medical History: Asthma, Hypertension History of Any Multi-Drug Resistant Organisms: None Reported Past Surgical History: No Surgical Hx Reported Additional Past Surgical History / Comment(s): testicular surgery, oral surgery Past Psychological History: Anxiety, Bipolar Past Alcohol Use History: Occasional Past Drug Use History: Cocaine, Heroin, Marijuana General Exam Limitations: no limitations General appearance: alert, in no apparent distress Eye exam: Present: PERRL, EOMI (Pain less), conjunctival injection (Mild left medial), other (Fluorescein stain remarkable for uptake to left eye medial aspect of sclera. Cornea is unremarkable. There is no Sidel sign, teardrop pupil or hyphema. Red reflex present IOP 15. No foreign body noted to cornea or with lid inversion.) Pupils: Present: normal accommodation Respiratory exam: Present: normal lung sounds bilaterally. Absent: respiratory distress, wheezes, rales, rhonchi, stridor Cardiovascular Exam: Present: regular rate, normal rhythm, normal heart sounds. Absent: systolic murmur, diastolic murmur, rubs, gallop, clicks Neurological exam: Present: alert, oriented X3, CN II-XII intact Skin exam: Present: warm, dry, intact, normal color. Absent: rash Course Vital Signs 10/25/24 10/25/24 16:20 17:56 Temperature 97.9 F 97.9 F Pulse Rate 69 71 Respiratory 16 16 Rate Blood Pressure 145/72 137/86 O2 Sat by Pulse 98 98 Oximetry Medical Decision Making - Medical Decision Making Was pt. sent in by a medical professional or institution ([facility], [employer], urgent care, hospital, or [facility]...) When possible be specific @ -No Did you speak to anyone other than the patient for history (EMS, parent, family, police, friend...)? What history was obtained from this source @ -Significant other, at bedside, aiding in HPI past medical history. Did you review nursing and triage notes (agree or disagree)? Why? @ -I reviewed and agree with nursing and triage notes Were old charts reviewed (outside hosp., previous admission, EMS record, old EKG, old radiological studies, urgent care reports/EKG's, [facility] records)? Report findings @ -No old charts were reviewed Differential Diagnosis (chest pain, altered mental status, abdominal pain women, abdominal pain men, vaginal bleeding, weakness, fever, dyspnea, syncope, headache, dizziness, GI bleed, back pain, seizure, CVA, palpatations, mental health, musculoskeletal)? @ -Corneal abrasion, ocular foreign body, hyphema, conjunctivitis, globe rupture, acute angle-closure glaucoma this list is not meant to be all-inclusive EKG interpreted by me (3pts min.). @ -None done X-rays interpreted by me (1pt min.). @ -None done CT interpreted by me (1pt min.). @ -None done U/S interpreted by me (1pt. min.). @ -None done What testing was considered but not performed or refused? (CT, X-rays, U/S, labs)? Why? @ -None What meds were considered but not given or refused? Why? @ -None Did you discuss the management of the patient with other professionals (professionals i.e. [facility], [employer] HEL[employer], lab, RT, psych nurse, social worker assistant, dumper mold cleaner, teacher, court security officer, heel caser)? Give summary @ -No Was smoking cessation discussed for >3mins.? @ -No Was critical care preformed (if so, how long)? @ -No Were there social determinants of health that impacted care today? How? (Homelessness, low income, unemployed, alcoholism, drug addiction, transportation, low edu. Level, literacy, decrease access to med. care, detention, rehab)? @ -No Was there de-escalation of care discussed even if they declined (Discuss DNR or withdrawal of care, Hospice)? DNR status @ -No What co-morbidities impacted this encounter? (DM, HTN, Smoking, COPD, CAD, Cancer, CVA, ARF, Chemo, Hep., AIDS, mental health diagnosis, sleep apnea, morbid obesity)? @ -None Was patient admitted / discharged? Hospital course, mention meds given and route, prescriptions, significant lab abnormalities, going to OR and other pertinent info. @ -Discharge. 29-year-old male presented to ER for evaluation of left eye foreign body. Vital signs stable. Patient in no signs of acute distress nontoxic-appearing. Exam remarkable for fluorescein uptake to left medial sclera. Cornea is unremarkable. There is no Sidel sign, teardrop pupil or hyphema. IOP left 15. Pupils are round and reacted with intact pain less extraocular motions. Tetanus updated. Visual acuity Left 20/30, right 20/25. Patient will be discharged with Tobrex eyedrops for infection prophylaxis, dosing instructions reviewed with patient. I advised against contact lens use. I recommended he follow-up closely with ophthalmology, referral given. Return parameters discussed. Patient discharged stable condition. Patient verbally expressed understanding agree with care plan. Case discussed with ED attending, Dr. Chen. Undiagnosed new problem with uncertain prognosis? @ -No Drug Therapy requiring intensive monitoring for toxicity (Heparin, Nitro, Insulin, Cardizem)? @ -No Were any procedures done? @ -No Diagnosis/symptom? @ -Eye irritation Acute, or Chronic, or Acute on Chronic? @ -Acute Uncomplicated (without systemic symptoms) or Complicated (systemic symptoms)? @ -Uncomplicated Side effects of treatment? @ -No Exacerbation, Progression, or Severe Exacerbation? @ -No Poses a threat to life or bodily function? How? (Chest pain, [place], [place], pneumonia, PE, COPD, DKA, ARF, appy, cholecystitis, CVA, Diverticulitis, Homicidal, Suicidal, threat to staff... and all critical care pts) @ -Unlikely Disposition Clinical Impression: Eye irritation Disposition: HOME SELF-CARE Condition: Stable Instructions (If sedation given, give patient instructions): Eye Foreign Body (ED) Additional Instructions: Follow-up with ophthalmology. Do not wear contact lenses until cleared by ophthalmology. Return to the ER for any new or worsening concerns. Use Tobrex eyedrops 2 drops in left eye every 6 hours for 5 days. Is patient prescribed a controlled substance at d/c from ED?: No Referrals: Tushar Mckenna MD [Primary Care Provider] - 1-2 days Erin Vicente MD [STAFF PHYSICIAN] - 1-2 days Time of Disposition: 17:27
[2024-10-25] MEDS: PROPARACAINE 0.5% OPHTH DROPS 15 ML BTL RIGHT EYE STA (17:02)
[2024-10-25] MEDS: DIPH,PERTUS(ACELL)TETVAC-LF 0.5 ML VIAL IM ONE (17:02)
[2024-10-25] MEDS: FLUORESCEIN STRIPS 1 MG STRIP RIGHT EYE ONE (17:02)
[2024-10-25] MEDS: TOBRAMYCIN 0.3% OPHTH DROPS 5 ML BTL LEFT EYE STA (17:53)
[2024-10-25 18:01] VITALS: BP 137/86; PULSE 71
== END 2024-10-25 17:56 | disposition home or self-care (01) ==
LOC: EC 16:09
DX: H57.9 Unspecified disorder of eye and adnexa (principal); Z88.0 Allergy status to penicillin; Z23 Encounter for immunization
CPT/HCPCS: 90471; 90715; 99283